=== PATIENT | male | born 1945 ===

== ENCOUNTER 2024-10-22 08:28 | Inpatient (IN) | payer OTHER ==
[~2024-10-22] VITALS: Ht 180.3 cm; Wt 70.3 kg
[2024-10-22] MEDS ORDERED: LIPITOR20 MG (08:53)
[2024-10-22] MEDS ORDERED: PLAVIX75 MG (08:53)
[2024-10-22] MEDS ORDERED: COZAAR100 MG PO (08:53)
[2024-10-26] MEDS ORDERED: RINGERS SOLUTION,LACTATED 1,000 ML IV SCH (11:45)
[2024-10-26] MEDS ORDERED: ATORVASTATIN CALCIUM 20 MG TABLET PO NR (13:00)
[2024-10-26] MEDS ORDERED: LOSARTAN POTASSIUM 100 MG TABLET PO NR (13:00)
[2024-10-26 16:00] VITALS: BP 156/71; O2SAT 98
[2024-10-26] MEDS ORDERED: ENALAPRILAT DIHYDRATE 1.25 MG/ML VIAL IV PRN (16:30)
[2024-10-26] MEDS ORDERED: FAMOTIDINE/PF 20 MG/2 ML VIAL IV SCH (21:00)
[2024-10-26] MEDS ORDERED: LABETALOL HCL 100 MG/20 ML ML IV PUSH STA (21:04)
[2024-10-27 00:51] VITALS: BP 151/75; O2SAT 98
[2024-10-27 07:50] LABS: BASO % 0.7 % (0.1-1.2); EOS # 0.37 (0.04-0.54); EOS % 5.3 % (0.7-7.0); LYMPH # 1.24 (1.18-3.74); LYMPH % 17.7 % (19.3-53.1); MEAN PLATELET VOLUME 9.10 fl (9.4-12.4); MONO # 0.64 (0.24-0.82); MONO % 9.1 % (4.7-12.5); NEUT # 4.70 (1.56-6.13); NEUT % 67.1 % (34.0-71.1); RED CELL DISTRIBUTION WIDTH 14.3 % (11.6-14.4)
[2024-10-27] MEDS ORDERED: LOSARTAN POTASSIUM 100 MG TABLET PO SCH (09:00)
[2024-10-27] MEDS ORDERED: ATORVASTATIN CALCIUM 20 MG TABLET PO SCH (09:00)
[2024-10-27 09:26] VITALS: BP 151/72; O2SAT 96
[2024-10-27] MEDS ORDERED: Cyanocobalamin/Mecobalamin 1 TAB.SL SL NR (13:00)
[2024-10-27] MEDS ORDERED: SOD FERRIC GLUC COMPLX/SUCROSE 62.5 MG in 0.9 % SODIUM CHLORIDE 50 ML IV NR (13:00)
[2024-10-27] MEDS ORDERED: POLYETHYLENE GLYCOL 3350 238 GM POWDER PO ONE (14:00)
[2024-10-27 16:23] VITALS: BP 150/80; O2SAT 97
[2024-10-27] MEDS ORDERED: BISACODYL 5 MG TABLET.EC PO SCH (21:00)
[2024-10-28 01:23] VITALS: BP 152/77; O2SAT 97
[2024-10-28] MEDS ORDERED: MINERAL OIL 133 ML ENEMA RECTAL ONE (05:00)
[2024-10-28] MEDS ORDERED: SOD FERRIC GLUC COMPLX/SUCROSE 62.5 MG in 0.9 % SODIUM CHLORIDE 50 ML IV SCH (09:00)
[2024-10-28] MEDS ORDERED: Cyanocobalamin/Mecobalamin 1 TAB.SL SL SCH (09:00)
[2024-10-28] MEDS ORDERED: METRONIDAZOLE/SODIUM CHLORIDE 500 MG/100 ML PIGGYBACK IV ONE (09:52)
[2024-10-28] MEDS ORDERED: CEFTRIAXONE SODIUM 2,000 MG VIAL ONE (09:52)
[2024-10-28] MEDS ORDERED: HEMOSTATIC MATRIX 1 KIT KIT TOP ONE (11:18)
[2024-10-28] MEDS ORDERED: POVIDONE-IODINE 118 ML BOTT TOP ONE (11:18)
[2024-10-28] MEDS ORDERED: DIBUCAINE 30 GM TUBE ONE (11:18)
[2024-10-28] MEDS ORDERED: BUPIVACAINE HCL/MPF 0.5% 30ML VIAL ONE (11:18)
[2024-10-28] MEDS ORDERED: LIDOCAINE HCL 1%/EPINEPHRINE 20ML VIAL IJ ONE (11:19)
[2024-10-28] MEDS ORDERED: ENALAPRILAT DIHYDRATE 1.25 MG/ML VIAL IV ONE (14:20)
[2024-10-28] MEDS ORDERED: MORPHINE SULFATE 4 MG/ML VIAL IV ONE (16:40)
== END 2024-10-28 20:28 | disposition home or self-care (01) | DRG 348 ==
LOC: ADM 11:15 → SURH 10-26 11:04 → EDSTATUS 10-28 11:15 → CIR.AMB 10-28 11:15 → SURH 10-28 20:28
PROVIDERS: Colon & Rectal Surgery; ADMIT Internal Medicine Geriatric Medicine; ATTEND Internal Medicine Geriatric Medicine
PROC: 30233N1 Transfusion of Nonautologous Red Blood Cells into Peripheral Vein, Percutaneous Approach (ICD-10-PCS; 2024-10-26)
PROC: 06LY7CC Occlusion of Hemorrhoidal Plexus with Extraluminal Device, Via Natural or Artificial Opening (ICD-10-PCS; 2024-10-28)
PROC: 06BY3ZC Excision of Hemorrhoidal Plexus, Percutaneous Approach (ICD-10-PCS; principal; 2024-10-28 13:15)
DX: K64.2 Third degree hemorrhoids (principal); K92.2 Gastrointestinal hemorrhage, unspecified; K64.4 Residual hemorrhoidal skin tags